=== PATIENT | male | born 1985 | race Caucasian/White ===

== ENCOUNTER 2016-12-11 12:19 | Inpatient (IN) | payer OTHER ==
[~2016-12-11] VITALS: Ht 180.3 cm; Wt 85.1 kg
[~2016-12-11 12:19] MED LIST: BACITRACIN 50,000 UNIT ONE; BACITRACIN OINT 500U/GM, 15 GM ONE; BUPIVACAINE/PF 0.5% ONE; DEXAMETHASONE 4 MG/ML, 1ML ONE; EPINEPHRINE 1 MG/ML, 1ML ONE; GLYCOPYRROLATE 0.2MG/1ML ONE; KETOROLAC 30 MG/1 ML ONE; NEOSTIGMINE 1 MG/ML, 10ML ONE; ONDANSETRON 2MG/ML, 2ML ONE; PROPOFOL 10 MG/ML, 20ML ONE; ROCURONIUM 10 MG/ML ONE; SUCCINYLCHOLINE 20 MG/ML, 10ML ONE; THROMBIN 5,000 UNIT VIAL TP ONE
[2016-12-11] MEDS ORDERED: LACTATED RINGERS 1,000 ML IV SCH (12:57)
[2016-12-11] MEDS ORDERED: DULO30CA2 PO (12:59)
[2016-12-11] MEDS ORDERED: PREG75CA PO (12:59)
[2016-12-11 13:01] VITALS: BP 127/77
[2016-12-11] MEDS ORDERED: FENTANYL PF 250 MCG/5ML ONE (14:25)
[2016-12-11] MEDS ORDERED: ONDANSETRON 2MG/ML, 2ML IVPush PRN ×2 (14:30→15:00)
[2016-12-11] MEDS ORDERED: HYDROcodone/APAP 5/325 TABLET PO PRN (14:30)
[2016-12-11] MEDS ORDERED: PHARMACY MAY ADJ FOR RENAL FX MC PRN (14:30)
[2016-12-11] MEDS ORDERED: SENNA/DOCUSATE TABLET PO PRN (14:30)
[2016-12-11] MEDS ORDERED: DIPHENHYDRAMINE 50 MG CAPSULE PO PRN (14:30)
[2016-12-11] MEDS ORDERED: PROPOFOL 10 MG/ML, 20ML ONE (14:35)
[2016-12-11] MEDS ORDERED: ONDANSETRON 2MG/ML, 2ML ONE ×2 (14:35→16:01)
[2016-12-11] MEDS ORDERED: LIDOCAINE 1%, 20ML ONE (14:35)
[2016-12-11] MEDS ORDERED: DEXAMETHASONE 4 MG/ML, 1ML ONE (14:35)
[2016-12-11] MEDS ORDERED: CEFAZOLIN 1,000 MG ONE (14:35)
[2016-12-11] MEDS ORDERED: ROCURONIUM 10 MG/ML ONE (14:35)
[2016-12-11] MEDS ORDERED: METOCLOPRAMIDE 5 MG/ML, 2ML ONE (14:35)
[2016-12-11] MEDS ORDERED: OXYcodone 5 MG/5 ML ORAL.SOL UDC PO PRN (15:00)
[2016-12-11] MEDS ORDERED: HYDROmorphone 1 MG/ML, 1ML IV PRN (15:00)
[2016-12-11] MEDS ORDERED: MEPERIDINE/PF 25MG/0.5ML IVPush PRN (15:00)
[2016-12-11] MEDS ORDERED: PROMETHAZINE 25 MG/ML, 1ML IV PRN (15:00)
[2016-12-11] MEDS ORDERED: hydrALAzine 20 MG/ML, 1ML IV PRN (15:00)
[2016-12-11] MEDS ORDERED: MIDAZOLAM 1 MG/ML, 2ML IV PRN (15:00)
[2016-12-11] MEDS ORDERED: LABETALOL 5MG/ML, 20ML IV PRN (15:00)
[2016-12-11] MEDS ORDERED: FENTANYL PF 100 MCG/2ML ONE (16:01)
[2016-12-11] MEDS ORDERED: OXYcodone 5 MG/5 ML ORAL.SOL UDC ONE (16:02)
[2016-12-11] MEDS: FENTANYL PF 100 MCG/2ML IV PRN ×2 (16:12→16:33)
[2016-12-11] MEDS ORDERED: HYDROmorphone 1 MG/ML, 1ML ONE (16:16)
[2016-12-11] MEDS: METHOCARBAMOL 750 MG TABLET PO PRN (18:01)
[2016-12-11] MEDS: NS + 20MEQ KCL 1,000 ML IV SCH (19:00)
[2016-12-11 20:25] VITALS: BP 129/75
[2016-12-11] MEDS: SODIUM CHLORIDE FLUSH 10ML SYR IVF SCH (20:49)
[2016-12-11] MEDS: OXYcodone/APAP 5/325MG TABLET PO PRN (20:49)
[2016-12-11] MEDS: PREGABALIN 75 MG CAPSULE PO SCH (20:49)
[2016-12-11] MEDS: CEFAZOLIN PMX 1GM/50ML 50 ML IVPB SCH (22:06)
[2016-12-12 00:01] VITALS: BP 115/66
[2016-12-12] MEDS: OXYcodone/APAP 5/325MG TABLET PO PRN ×4 (00:56→14:01)
[2016-12-12] MEDS: METHOCARBAMOL 750 MG TABLET PO PRN ×2 (02:30→10:32)
[2016-12-12] MEDS: NS + 20MEQ KCL 1,000 ML IV SCH (03:50)
[2016-12-12 03:55] VITALS: BP 115/63
[2016-12-12] MEDS: CEFAZOLIN PMX 1GM/50ML 50 ML IVPB SCH (06:13)
[2016-12-12 06:58] VITALS: BP 114/64
[2016-12-12] MEDS ORDERED: DULOXETINE 30 MG CAPSULE.DR PO SCH (09:00)
[2016-12-12] MEDS: SODIUM CHLORIDE FLUSH 10ML SYR IVF SCH (09:00)
[2016-12-12] MEDS: PREGABALIN 75 MG CAPSULE PO SCH (10:33)
[2016-12-12] MEDS ORDERED: OXYC1TAB7 PO (11:49)
[2016-12-12] MEDS ORDERED: METH750T2 PO (11:49)
[2016-12-12] MEDS ORDERED: HYDR-3138 PO (12:22)
[2016-12-12 13:30] VITALS: BP 115/60
== END 2016-12-12 14:10 | disposition home or self-care (01) | DRG 520 ==
LOC: OUT 12:19 → 4NOR 17:06 → OUT 23:11
PROVIDERS: ADMIT Neurological Surgery; ATTEND Neurological Surgery
PROC: 0SB40ZZ Excision of Lumbosacral Disc, Open Approach (ICD-10-PCS; principal; 2016-12-11 14:30)
DX: M54.17 Radiculopathy, lumbosacral region (principal)
CPT/HCPCS: 72100; J0171; J0690; J1100; J1170; J1885; J2405; J2704; J2710; J3010; J3490; J0330; J2765; J7120